=== PATIENT | female | born 1970 | race Hispanic/Latino ===

== ENCOUNTER 2023-11-17 00:25 | Emergency (ER) | payer OTHER ==
[~2023-11-17] VITALS: Ht 157.5 cm; Wt 92.1 kg
[2023-11-17 00:40] VITALS: PULSE 84; RESP 20; TEMP 98.7
[2023-11-17 03:35] VITALS: BP 119/75; PULSE 71; RESP 17; TEMP 98.2; O2SAT 100
== END 2023-11-17 03:37 | disposition home or self-care (01) ==
LOC: ER 00:34
DX: S63.592A Other specified sprain of left wrist, initial encounter (principal); S63.591A Other specified sprain of right wrist, initial encounter; S50.312A Abrasion of left elbow, initial encounter; S60.222A Contusion of left hand, initial encounter; S80.02XA Contusion of left knee, initial encounter; S80.01XA Contusion of right knee, initial encounter; W01.0XXA Fall on same level from slipping, tripping and stumbling without subsequent striking against object, initial encounter; Y93.01 Activity, walking, marching and hiking; Y92.488 Other paved roadways as the place of occurrence of the external cause; I10 Essential (primary) hypertension; E11.9 Type 2 diabetes mellitus without complications; E78.5 Hyperlipidemia, unspecified; E03.9 Hypothyroidism, unspecified
CPT/HCPCS: 99283